=== PATIENT | female | born 1960 | race Caucasian/White ===

== ENCOUNTER → 2016-12-05 | Outpatient (CLI) | payer MEDICARE ==
[~2016-12-05] MED LIST: ACCUPRIL TAB 5MG5 MG PO; AMARYL 2MG TABLE2 MG PO; AMBIEN10 MG PO; ASPIRIN325 MG PO; CALCIUM + VITA1 EACH PO; FENOFIBRATE134 MG PO; FERROUS SULFAT324 MG PO; FISH OIL 1,0001 EAC1 PO; FLEXERIL 10 MG10 MG PO; IMDUR ER TAB 3030 MG PO; LEVOXYL25 MCG PO; METOPROLOL TART50 MG PO; NEURONTIN 400400 MG PO; PROTONIX40 MG PO; SUCRALFATE1 GM PO; TOPAMAX50 MG PO; TRADJENTA5 MG PO; VITAMIN D2000 UNI1 PO; ZOCOR20 MG PO
== END ==
LOC: EMI 08:15
DX: G44.89 Other headache syndrome (principal); M54.2 Cervicalgia; M50.321 Other cervical disc degeneration at C4-C5 level; M99.71 Connective tissue and disc stenosis of intervertebral foramina of cervical region
CPT/HCPCS: 70551; 72141

== ENCOUNTER → 2017-01-23 | Outpatient (CLI) | payer MEDICARE ==
[2017-01-23 12:13] LABS: HEMOGLOBIN 12.8 gm/dl (12.3-15.3); RED BLOOD COUNT 4.42 M/UL (4.00-5.10); WHITE BLOOD COUNT 9.1 K/UL (4.5-11.0)
[2017-01-23 12:34] LABS: BUN/CREATININE RATIO 19 (0-10)
== END ==
LOC: LAB 11:01
PROVIDERS: Emergency Medicine
DX: D50.8 Other iron deficiency anemias (principal); D64.89 Other specified anemias; E03.8 Other specified hypothyroidism; E11.65 Type 2 diabetes mellitus with hyperglycemia; E11.69 Type 2 diabetes mellitus with other specified complication; E53.9 Vitamin B deficiency, unspecified; E55.9 Vitamin D deficiency, unspecified; E78.2 Mixed hyperlipidemia; G44.311 Acute post-traumatic headache, intractable; G44.89 Other headache syndrome; G47.19 Other hypersomnia; G56.03 Carpal tunnel syndrome, bilateral upper limbs; I10 Essential (primary) hypertension; I95.2 Hypotension due to drugs; J06.9 Acute upper respiratory infection, unspecified; J20.8 Acute bronchitis due to other specified organisms; K21.9 Gastro-esophageal reflux disease without esophagitis; K52.89 Other specified noninfective gastroenteritis and colitis; M51.36 Other intervertebral disc degeneration, lumbar region; M54.2 Cervicalgia; N30.01 Acute cystitis with hematuria; R10.12 Left upper quadrant pain; R07.89 Other chest pain; N20.0 Calculus of kidney
CPT/HCPCS: 36415; 71020; 74020; 80053; 82150; 83690; 84484; 85027; 87086; 93005

== ENCOUNTER 2020-12-04 15:02 | Emergency (ER) | payer MEDICARE ==
[~2020-12-04 15:02] MED LIST changes: -ASPIRIN325 MG PO; +CARAFATE 1 GM TA1 GM PO; +CARAFATE1 GM PO; +CLARITIN10 MG PO; +DOCUSATE SODIU250 MG PO; +ECOTRIN81 MG PO; +IBUPROFEN600 MG PO; +LEVAQUIN500 MG PO; +LIORESAL TAB 1010 MG PO; -METOPROLOL TART50 MG PO; +PERCOCET 7.5-31 EACH PO; +PROAIR HFA8.5 GM INH; +TOPROL XL25 MG PO; +TYLENOL 500 MG500 MG PO; +ZOFRAN4 MG PO
[2020-12-04 15:43] LABS: HEMOGLOBIN 10.9 gm/dl (12.3-15.3); RED BLOOD COUNT 3.91 M/UL (4.00-5.10); WHITE BLOOD COUNT 9.8 K/UL (4.5-11.0)
[2020-12-04 16:02] LABS: BUN/CREATININE RATIO 24 (0-10)
[2020-12-04] MEDS ORDERED: FLORASTOR250 MG PO (17:27)
[2020-12-04] MEDS ORDERED: FLAGYL500 MG PO (17:27)
[2020-12-04] MEDS ORDERED: CIPRO500 MG PO (17:32)
== END 2020-12-04 18:00 | disposition home or self-care (01) ==
LOC: ER1 15:02
PROVIDERS: Emergency Medicine
DX: K57.32 Diverticulitis of large intestine without perforation or abscess without bleeding (principal); N39.0 Urinary tract infection, site not specified; E11.9 Type 2 diabetes mellitus without complications; I25.10 Atherosclerotic heart disease of native coronary artery without angina pectoris; I11.9 Hypertensive heart disease without heart failure; Z88.5 Allergy status to narcotic agent; Z88.0 Allergy status to penicillin
CPT/HCPCS: 80053; 81001; 82550; 82553; 83690; 83874; 84484; 85025; 85610; 85730; 93005; 96374; 96375; 96376; 99284; J2270; J2405; J7030; Q9967

== ENCOUNTER 2021-06-15 12:33 | Emergency (ER) | payer MEDICARE ==
[~2021-06-15 12:33] MED LIST changes: +CIPRO500 MG PO; +FLAGYL500 MG PO; +FLORASTOR250 MG PO
[2021-06-15 14:02] LABS: HEMOGLOBIN 11.8 gm/dl (12.3-15.3); RED BLOOD COUNT 4.24 M/UL (4.00-5.10); WHITE BLOOD COUNT 9.2 K/UL (4.5-11.0)
[2021-06-15 14:26] LABS: BUN/CREATININE RATIO 27 (0-10)
[2021-06-15] MEDS ORDERED: PREDNISONE20 MG PO (16:19)
== END 2021-06-15 16:33 | disposition home or self-care (01) ==
LOC: ER1 12:33
PROVIDERS: Nurse Practitioner
DX: M54.50 Low back pain, unspecified (principal); F11.90 Opioid use, unspecified, uncomplicated; G89.29 Other chronic pain; I10 Essential (primary) hypertension; E78.5 Hyperlipidemia, unspecified; E11.9 Type 2 diabetes mellitus without complications; Z88.0 Allergy status to penicillin; Z88.5 Allergy status to narcotic agent; W19.XXXA Unspecified fall, initial encounter
CPT/HCPCS: 51701; 72131; 80053; 81001; 85025; 96374; 96375; 99284; J1100; J1200; J1885; J2270; J2360; J2405

== ENCOUNTER 2021-06-16 00:18 | Emergency (ER) | payer MEDICARE ==
[~2021-06-16 00:18] MED LIST changes: +PREDNISONE20 MG PO
[2021-06-16 01:16] LABS: HEMOGLOBIN 11.5 gm/dl (12.3-15.3); RED BLOOD COUNT 4.25 M/UL (4.00-5.10)
[2021-06-16 01:17] LABS: WHITE BLOOD COUNT 15.1 K/UL (4.5-11.0)
[2021-06-16 01:32] LABS: BUN/CREATININE RATIO 32 (0-10)
== END 2021-06-16 02:30 | disposition home or self-care (01) ==
LOC: ER1 00:18
PROVIDERS: Physician Assistant
DX: E11.65 Type 2 diabetes mellitus with hyperglycemia (principal); I25.10 Atherosclerotic heart disease of native coronary artery without angina pectoris; E78.5 Hyperlipidemia, unspecified; I10 Essential (primary) hypertension; Z90.49 Acquired absence of other specified parts of digestive tract; Z90.710 Acquired absence of both cervix and uterus; Z88.0 Allergy status to penicillin; Z88.5 Allergy status to narcotic agent
CPT/HCPCS: 80053; 81001; 82962; 85025; 87086; 99284

== ENCOUNTER 2021-06-23 19:45 | Emergency (ER) | payer MEDICARE ==
[2021-06-23] MEDS ORDERED: Voltaren Gel 1% TOP (21:07)
== END 2021-06-23 21:35 | disposition home or self-care (01) ==
LOC: ER1 19:45
DX: G89.29 Other chronic pain (principal); M54.50 Low back pain, unspecified; I11.9 Hypertensive heart disease without heart failure; E11.9 Type 2 diabetes mellitus without complications; Z90.49 Acquired absence of other specified parts of digestive tract; Z90.710 Acquired absence of both cervix and uterus; Z88.5 Allergy status to narcotic agent; Z88.0 Allergy status to penicillin; Z88.8 Allergy status to other drugs, medicaments and biological substances
CPT/HCPCS: 81001; 96374; 96375; 99283; J1170; J1885; J2405

== ENCOUNTER 2021-07-03 19:56 | Emergency (ER) | payer MEDICARE ==
[~2021-07-03 19:56] MED LIST changes: +Voltaren Gel 1% TOP
[2021-07-03 21:46] LABS: HEMOGLOBIN 11.6 gm/dl (12.3-15.3); RED BLOOD COUNT 4.17 M/UL (4.00-5.10)
[2021-07-03 22:15] LABS: BUN/CREATININE RATIO 39 (0-10)
== END 2021-07-03 23:09 | disposition home or self-care (01) ==
LOC: ER1 19:56
PROVIDERS: Family Medicine
DX: M54.50 Low back pain, unspecified (principal); E11.9 Type 2 diabetes mellitus without complications; M25.552 Pain in left hip; M25.551 Pain in right hip; G89.29 Other chronic pain; F11.20 Opioid dependence, uncomplicated; Z90.710 Acquired absence of both cervix and uterus; Z88.0 Allergy status to penicillin; Z88.6 Allergy status to analgesic agent; Z88.8 Allergy status to other drugs, medicaments and biological substances
CPT/HCPCS: 72170; 80048; 81001; 82009; 85025; 86140; 96374; 99283; J1885

== ENCOUNTER → 2021-07-13 | Outpatient (CLI) | payer MEDICARE | LOC: KOH-I 15:06 | DX: M51.17 Intervertebral disc disorders with radiculopathy, lumbosacral region (principal); M54.89 Other dorsalgia; M51.26 Other intervertebral disc displacement, lumbar region; M47.816 Spondylosis without myelopathy or radiculopathy, lumbar region; M48.061 Spinal stenosis, lumbar region without neurogenic claudication; M48.07 Spinal stenosis, lumbosacral region | CPT/HCPCS: 72148 ==

== ENCOUNTER 2022-03-06 17:23 | Emergency (ER) | payer MEDICARE ==
[2022-03-06 19:39] LABS: HEMOGLOBIN 12.6 gm/dl (12.3-15.3); RED BLOOD COUNT 4.61 M/UL (4.00-5.10); WHITE BLOOD COUNT 12.8 K/UL (4.5-11.0)
[2022-03-06 20:05] LABS: BUN/CREATININE RATIO 24 (0-10)
== END 2022-03-06 22:10 | disposition home or self-care (01) ==
LOC: ER1 17:23
PROVIDERS: Emergency Medicine
DX: R10.9 Unspecified abdominal pain (principal); E11.649 Type 2 diabetes mellitus with hypoglycemia without coma; K46.9 Unspecified abdominal hernia without obstruction or gangrene; K57.30 Diverticulosis of large intestine without perforation or abscess without bleeding; I25.10 Atherosclerotic heart disease of native coronary artery without angina pectoris; I10 Essential (primary) hypertension; Z95.5 Presence of coronary angioplasty implant and graft
CPT/HCPCS: 80053; 81001; 82962; 83690; 85025; 96361; 96374; 96375; 99284; J1170; J2270; J2405; Q9967

== ENCOUNTER → 2022-03-18 | Outpatient (CLI) | payer MEDICARE ==
[~2022-03-18] MED LIST changes: +BASAGLAR K100 UNIT/1 SQ; +CENTRUM SILVER1 EAC4 PO; +COLACE 100MG C100 MG PO; +FLONASE 0.05% N16 GM; +GABAPENTIN600 MG PO; +GINGER ROOT550 MG PO; +HYDROCHLOROTHIA25 MG PO; +HYDROCODON-ACE1 EAC2 PO; +JARDIANCE25 MG PO; +MAGNESIUM OXID400 M1 PO; +MELATONIN10 M2 PO; +METFORMIN HCL500 MG PO; +NOVOLIN 70100 UNIT/1 SQ; +PERCOCET 5/325 T1 EA PO; +PROMETHAZINE HC25 M1 PO; +QUINAPRIL HCL10 MG PO; +TOPROL XL 50 MG50 MG PO; -TOPROL XL25 MG PO; +VITAMIN D325 MC6 PO; +XYZAL5 MG PO
[2022-03-18 13:28] LABS: BUN/CREATININE RATIO 36 (0-10)
== END ==
LOC: OPSV2 12:19
PROVIDERS: Surgery
DX: Z01.818 Encounter for other preprocedural examination (principal); E11.9 Type 2 diabetes mellitus without complications; Z95.818 Presence of other cardiac implants and grafts; R94.31 Abnormal electrocardiogram [ECG] [EKG]
CPT/HCPCS: 36415; 80048; 93005

== ENCOUNTER → 2022-03-22 | Day surgery (SDC) | payer MEDICARE | END | disposition home or self-care (01) | LOC: OR 06:11 | PROVIDERS: Surgery | PROC: 0WUF4JZ Supplement Abdominal Wall with Synthetic Substitute, Percutaneous Endoscopic Approach (ICD-10-PCS; principal; 2022-03-22 09:10) | DX: K43.9 Ventral hernia without obstruction or gangrene (principal); I25.10 Atherosclerotic heart disease of native coronary artery without angina pectoris; I10 Essential (primary) hypertension; E78.00 Pure hypercholesterolemia, unspecified; J45.909 Unspecified asthma, uncomplicated; K21.9 Gastro-esophageal reflux disease without esophagitis; K76.0 Fatty (change of) liver, not elsewhere classified; D64.9 Anemia, unspecified; E11.43 Type 2 diabetes mellitus with diabetic autonomic (poly)neuropathy; K31.84 Gastroparesis; G43.909 Migraine, unspecified, not intractable, without status migrainosus; G25.81 Restless legs syndrome; G47.33 Obstructive sleep apnea (adult) (pediatric); Z79.82 Long term (current) use of aspirin; Z79.4 Long term (current) use of insulin; Z79.84 Long term (current) use of oral hypoglycemic drugs; Z79.899 Other long term (current) drug therapy; Z88.0 Allergy status to penicillin; Z88.5 Allergy status to narcotic agent; Z88.8 Allergy status to other drugs, medicaments and biological substances; Z95.5 Presence of coronary angioplasty implant and graft | CPT/HCPCS: 82962; C1713; C1729; C1781; J1100; J1170; J1885; J2001; J2250; J2405; J2550; J2704; J2710; J3010 ==